=== PATIENT | male | born 2000 | race African-American/Black ===

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

== ENCOUNTER 2022-09-22 19:00 | Outpatient (CLI) | payer OTHER | END 2022-09-22 19:01 | disposition home or self-care (01) | LOC: SLEEPLAB 19:00 | PROVIDERS: ATTEND Student in an Organized Health Care Education/Training Program | DX: G47.33 Obstructive sleep apnea (adult) (pediatric) (principal); G31.84 Mild cognitive impairment of uncertain or unknown etiology; R06.83 Snoring; F32.A Depression, unspecified; G47.10 Hypersomnia, unspecified; G82.20 Paraplegia, unspecified; G47.00 Insomnia, unspecified; Q05.9 Spina bifida, unspecified | CPT/HCPCS: 95810 ==

== ENCOUNTER 2022-12-08 19:00 | Outpatient (CLI) | payer OTHER | END 2022-12-08 19:01 | disposition home or self-care (01) | LOC: SLEEPLAB 19:00 | PROVIDERS: ATTEND Student in an Organized Health Care Education/Training Program | DX: G47.33 Obstructive sleep apnea (adult) (pediatric) (principal); R06.83 Snoring; F32.A Depression, unspecified; G31.84 Mild cognitive impairment of uncertain or unknown etiology | CPT/HCPCS: 95811 ==